=== PATIENT | male | born 1960 | race Caucasian/White ===

== ENCOUNTER 2022-10-19 10:14 | Outpatient (CLI) | payer BC, MEDICAID, SELFPAY ==
--- NOTE | 2022-10-19 10:24 | XRR_ITS ---
PROCEDURE INFORMATION: Exam: XR Chest Exam date and time: 10/19/2022 10:26 AM Age: 62 years old Clinical indication: Cough TECHNIQUE: Imaging protocol: Radiologic exam of the chest. Views: 2 views. COMPARISON: CR XR chest 1V [id number] 10/12/2018 9:37 PM FINDINGS: Lungs: Perihilar interstitial opacities, right greater than left. Pleural spaces: Unremarkable. No pleural effusion. No pneumothorax. Heart/Mediastinum: Unremarkable. No cardiomegaly. Bones/joints: Unremarkable. XR/XR chest 2V* [id number] IMPRESSION: Perihilar interstitial opacities, right greater than left, may reflect infection.
== END 2022-10-19 10:15 | disposition home or self-care (01) ==
LOC: RAD 10:21
PROVIDERS: PCP Family Medicine; Visit Provider Family Medicine
DX: R05.9 Cough, unspecified (principal)
CPT/HCPCS: 71046

== ENCOUNTER 2023-07-20 08:44 | Outpatient (CLI) | payer BC, MEDICAID, SELFPAY ==
[2023-07-20 09:06] VITALS: PULSE 64; RESP 18; O2SAT 95
[2023-07-20] MEDS: albuterol 2.5 mg/3 mL Neb INHALATION (09:06)
== END 2023-07-20 08:45 | disposition home or self-care (01) ==
LOC: RT 08:44
PROVIDERS: PCP Family Medicine; Visit Provider Family Medicine
DX: R05.9 Cough, unspecified (principal); R06.00 Dyspnea, unspecified; R94.2 Abnormal results of pulmonary function studies
CPT/HCPCS: 94060; 94726; 94729; J7613

== ENCOUNTER 2023-08-10 07:38 | Outpatient (CLI) | payer BC, SELFPAY ==
--- NOTE | 2023-08-10 07:46 | CTR_ITS ---
PROCEDURE INFORMATION: Exam: CT Chest Without Contrast; Diagnostic Exam date and time: 08/10/2023 7:53 AM Age: 63 years old Clinical indication: Patient HX: Persistent chronic cough for the last two years. 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 TECHNIQUE: Imaging protocol: Diagnostic computed tomography of the chest without contrast. Radiation optimization: All CT scans at this facility use at least one of these dose optimization techniques: automated exposure control; mA and/or kV adjustment per patient size (includes targeted exams where dose is matched to clinical indication); or iterative reconstruction. REPORTING DATA: Count of CT and Cardiac NM exams in prior 12 months: This patient has received 0 known CTs and 0 known cardiac nuclear medicine studies in the 12 months prior to the current study. COMPARISON: 1. CR XR chest 2V* [id number] 10/19/2022 10:26 AM 2. CR XR chest 1V [id number] 10/12/2018 9:37 PM RADIATION DOSE METRICS: Total DLP (mGy-cm): 306.49 FINDINGS: Lungs: Moderate severity bilateral symmetric lung disease characterized by central lung predominant peribronchovascular consolidation and coarse reticular opacity with mild pulmonary parenchymal architectural distortion and numerous irregular pulmonary nodules, some of which are calcified. The nodules measure 3-9 mm. There is platelike atelectasis in the right mid lung. Segmental bronchi are mildly narrowed in the leslie bilaterally. Pleural spaces: Trace left pleural effusion. No pneumothorax. Heart: Heart size is normal. There is no pericardial effusion. There are calcifications at the aortic valve. Coronary arteries: Coronary artery calcification is absent. Lymph nodes: There is lymphadenopathy in the gastrohepatic ligament. Lymph nodes measure up to 17 x 14 mm on axial series 4, image 58. There is an enlarged retrocrural lymph node measuring 22 x 13 mm on axial series 4, image 51. There are diffusely enlarged mediastinal and bilateral hilar lymph nodes. Many of the lymph nodes demonstrate internal calcification. Vasculature: The aorta is unremarkable. There is no aneurysm. Gallbladder and bile ducts: There is a solitary calcified gallstone in the nondistended gallbladder lumen. There is no sign of acute cholecystitis. Bones/joints: Bones are unremarkable. Soft tissues: The extrathoracic soft tissues are unremarkable. CT/CT chest con [id number] IMPRESSION: 1. Moderate severity bilateral lung disease is similar to findings on 10/19/2022 and is new since 10/12/2018. The findings are typical of sarcoidosis. Differential diagnosis includes pneumoconioses (chronic beryllium disease and silicosis), and tuberculosis. Recommend correlation with serological biomarkers. 2. Calcified and noncalcified bilateral pulmonary nodules measuring up to 9 mm are likely related to underlying lung disease. Neoplastic nodules cannot be excluded. For patients at low risk (minimal or absent history of smoking and of other known risk factors), recommend CT Chest at 3-6 months, then consider CT Chest at 18-24 months. For patients at high risk (history of smoking or of other known risk factors), recommend CT Chest at 3-6 months, then CT Chest at 18-24 months. (Reference: Ezekiel) 3. Calcified mediastinal and hilar lymphadenopathy consistent with sarcoidosis or pneumoconiosis. Enlarged noncalcified lymph nodes in the retrocrural region and upper abdomen are also likely related to underlying lung disease. Neoplastic lymphadenopathy in the upper abdomen cannot be excluded. REFERENCES: Ezekiel H, et al. Guidelines for Management of Incidental Pulmonary Nodules Detected on CT Images: From the Fleischner Society 2017. Radiology. 2017;284(1):228-243.
== END 2023-08-10 07:39 | disposition home or self-care (01) ==
LOC: RAD 07:39
PROVIDERS: PCP Family Medicine; Visit Provider Family Medicine
DX: R05.3 Chronic cough (principal); J98.4 Other disorders of lung; R59.0 Localized enlarged lymph nodes; R91.8 Other nonspecific abnormal finding of lung field; Z57.8 Occupational exposure to other risk factors
CPT/HCPCS: 71250

== ENCOUNTER 2024-02-01 07:40 | Day surgery (SDC) | payer BC, MEDICAID, SELFPAY ==
[2024-02-01 08:03] VITALS: BP 131/77; PULSE 66; RESP 16; TEMP 36.3; O2SAT 97
[2024-02-01] MEDS: sodium chloride 0.9% 1,000 ML 30 ML IV (08:09)
--- NOTE | 2024-02-01 08:43 | ANES.PREANE2 ---
Pre-Anesthetic Assessment Height/Weight: Height 1.83 m Temp Pulse Resp BP Pulse Ox O2 Del Method 97.3 F L 66 16 131/77 97 Room Air 02/01/24 08:03 02/01/24 08:03 02/01/24 08:03 02/01/24 08:03 02/01/24 08:03 02/01/24 08:03 Preop Diagnosis: screening Operation Date: 02/01/24 08:45 Proposed Procedures p Colonoscopy 52454, G0105, Z12.11(Not Applicable) - Ap Henry, DO Was Beta Zana taken within 24 hours: N/A Was Clonidine taken within 24 hours: N/A Last intake: Intake Last Liquid Date 02/01/24 Last Liquid Time 23:30 Last Solid Date 01/31/24 Last Solid Time 21:00 Social No alcohol and No tobacco Exam alert, oriented x 3, clear to auscultation bilaterally and regular rate & rhythm Airway Submandibular: within normal limits Cervical ROM: within normal limits Mallampati: Class II Dentition: chipped Comments: Comments: very poor dention. prominent front middle upper teeth. broken teeth noted, some in the past week, patient states he needs to go see the dentist History/ROS No significant history except as noted Pulmonary Chronic Obstructive Pulmonary Disease sarcoidosis, copd, no oxygen use. sleeps upright 45 degrees CV/HEM METS > 4 None reported Hepatic None reported GI Gastroesophageal Reflux Disease controlled Metabolic None reported Musc/skel None reported Neuropsych None reported Anesthetic Plan ASA status: 2 Anesthesia: MAC Risk of > 500 ml blood loss (7ml/kg in children): Yes, adequate IV access and fluids planned Medications/Allergies Home Medications Medication Instructions Recorded Confirmed Last Taken Type triamcinolone acetonide 55 mcg 2 spray intranasal DAILY #16.9 mL 10/10/22 02/01/24 01/30/24 Rx nasal spray aerosol (Nasacort Allergy) levocetirizine 5 mg tablet (Xyzal) 5 mg PO DAILY #30 tabs 05/27/23 02/01/24 01/30/24 Rx prednisone 10 mg tablet 20 mg PO DAILY 12/22/23 02/01/24 01/30/24 History ascorbic acid (vitamin C) 1,000 mg 500 mg PO DAILY 01/30/24 02/01/24 01/30/24 History tablet (Vitamin C) fluticasone 500 mcg-salmeterol 50 1 inh inhalation BID 01/30/24 02/01/24 01/30/24 History mcg/dose blistr powdr for inhalation (Advair Diskus) ipratropium bromide 42 mcg (0.06 2 spray intranasal QID PRN 01/30/24 02/01/24 01/30/24 History %) nasal spray Congestion omeprazole 40 mg capsule,delayed 40 mg PO DAILY 01/30/24 02/01/24 01/30/24 History release sulfamethoxazole 800 See Rx Instructions .Route .COMPLEX 01/30/24 02/01/24 01/30/24 History mg-trimethoprim 160 mg tablet (Bactrim DS) Allergies Allergy/AdvReac Type Severity Reaction Status Date / Time No Known Allergies Allergy Unverified 02/01/24 07:59 Current Medications Generic Name Dose Route Start Last Admin Trade Name Freq PRN Reason Stop Dose Admin Sodium Chloride 1,000 mls @ 30 mls/hr 02/01/24 08:00 02/01/24 08:09 Sodium Chloride 0.9% IV 02/02/24 07:59 30 mls/hr .Q24H AIDE Administration PFSH Anesthesia Surgical History History of hip surgery Social History Smoking and tobacco/nicotine status: never used tobacco/nicotine Data Anesthesia Cardiac Studies: No Data to Display
--- NOTE | 2024-02-01 09:07 | PM.HP ---
Providers/Chief Complaint Primary Care Provider: Marylou Tapia MD Chief Complaint: Z12.11 History of Present Illness Colin Conner is a 63 year old male Review of Systems General: Reports: 10 or more systems reviewed and unremarkable except in HPI and below Medications/Allergies Home Medications Medication Instructions Recorded Confirmed Last Taken Type triamcinolone acetonide 55 mcg 2 spray intranasal DAILY #16.9 mL 10/10/22 02/01/24 01/30/24 Rx nasal spray aerosol (Nasacort Allergy) levocetirizine 5 mg tablet (Xyzal) 5 mg PO DAILY #30 tabs 05/27/23 02/01/24 01/30/24 Rx prednisone 10 mg tablet 20 mg PO DAILY 12/22/23 02/01/24 01/30/24 History ascorbic acid (vitamin C) 1,000 mg 500 mg PO DAILY 01/30/24 02/01/24 01/30/24 History tablet (Vitamin C) fluticasone 500 mcg-salmeterol 50 1 inh inhalation BID 01/30/24 02/01/24 01/30/24 History mcg/dose blistr powdr for inhalation (Advair Diskus) ipratropium bromide 42 mcg (0.06 2 spray intranasal QID PRN 01/30/24 02/01/24 01/30/24 History %) nasal spray Congestion omeprazole 40 mg capsule,delayed 40 mg PO DAILY 01/30/24 02/01/24 01/30/24 History release sulfamethoxazole 800 See Rx Instructions .Route .COMPLEX 01/30/24 02/01/24 01/30/24 History mg-trimethoprim 160 mg tablet (Bactrim DS) Allergies Allergy/AdvReac Type Severity Reaction Status Date / Time No Known Allergies Allergy Unverified 02/01/24 07:59 PFSH Acute PFSH: Surgical History History of hip surgery Social History Smoking and tobacco/nicotine status: never used tobacco/nicotine Vitals/I&O/Wt Last Vital Signs Temp 97.3 F L 02/01/24 08:03 Pulse 66 02/01/24 08:03 Resp 16 02/01/24 08:03 BP 131/77 02/01/24 08:03 Pulse Ox 97 02/01/24 08:03 O2 Del Method Room Air 02/01/24 08:03 A&P Assessment and plan (1) Colon cancer screening: Plan Colonoscopy Attestations Medical Necessity Statement*: Home Coding Level of Care Code Acute Code for Chg Fwd Diagnoses Colon cancer screening Z12.11
[2024-02-01 09:20] VITALS: BP 113/70; PULSE 69; RESP 18; TEMP 36.4; O2SAT 99
[2024-02-01 09:35] VITALS: BP 111/70; PULSE 74; RESP 18; O2SAT 95
--- NOTE | 2024-02-01 10:41 | ANE.PACU2 ---
Inpatient post-anesthesia follow up: Airway intact: Yes Vital signs: Temperature 97.5 F Pulse Rate 74 Respiratory Rate 18 Blood Pressure 111/70 Pulse Oximetry 95 Oxygen Delivery Me thod Room Air Oxygen Flow Rate Fraction of Inspir ed Oxygen Hydration adequate: Yes Nausea and vomiting: No Pain level: 1 Mental status: Baseline
== END 2024-02-01 09:54 | disposition home or self-care (01) ==
PROVIDERS: PCP Family Medicine; Visit Provider Surgery
PROC: 0DJD8ZZ Inspection of Lower Intestinal Tract, Via Natural or Artificial Opening Endoscopic (ICD-10-PCS; CPT 45378; principal; 2024-02-01 08:45)
DX: Z12.11 Encounter for screening for malignant neoplasm of colon (principal); J44.9 Chronic obstructive pulmonary disease, unspecified; K21.9 Gastro-esophageal reflux disease without esophagitis
CPT/HCPCS: 45378; J2704; J7030

== ENCOUNTER 2024-05-23 07:52 | Outpatient (CLI) | payer BC, MEDICAID, SELFPAY ==
[2024-05-23 08:13] VITALS: PULSE 77; RESP 18; O2SAT 95
[2024-05-23] MEDS: albuterol 2.5 mg/3 mL Neb INHALATION (08:13)
[2024-05-23 08:18] VITALS: PULSE 86
== END 2024-05-23 07:53 | disposition home or self-care (01) ==
LOC: RT 07:53
PROVIDERS: PCP Family Medicine; Visit Provider Internal Medicine
DX: J44.9 Chronic obstructive pulmonary disease, unspecified (principal); D86.9 Sarcoidosis, unspecified; R91.8 Other nonspecific abnormal finding of lung field; R94.2 Abnormal results of pulmonary function studies
CPT/HCPCS: 94060; 94726; 94729; J7613

== ENCOUNTER 2024-07-31 07:03 | Outpatient (CLI) | payer OTHER, SELFPAY ==
[2024-07-31 07:30] VITALS: PULSE 83; RESP 18; O2SAT 97
[2024-07-31] MEDS: albuterol 2.5 mg/3 mL Neb INHALATION (07:30)
[2024-07-31 07:34] VITALS: PULSE 87
== END 2024-07-31 07:04 | disposition home or self-care (01) ==
LOC: RT 07:03
PROVIDERS: PCP Family Medicine; Visit Provider Orthopaedic Surgery
DX: Z02.71 Encounter for disability determination (principal); J44.9 Chronic obstructive pulmonary disease, unspecified
CPT/HCPCS: 94060; 94729; J7613

== ENCOUNTER 2024-09-07 01:05 | Emergency (ER) | payer BC, MEDICAID, SELFPAY ==
--- NOTE | 2024-09-07 01:30 | XRR_ITS ---
PROCEDURE INFORMATION: Exam: XR Complete Acute Abdomen Series Including Chest Exam date and time: 09/07/2024 1:40 AM Age: 64 years old Clinical indication: Abdominal pain; Patient HX: HX sarcoidosis TECHNIQUE: Imaging protocol: Radiologic exam. Complete acute abdomen series, including 2 or more views of the abdomen and a single view chest. COMPARISON: CT chest con [id number] 08/10/2023 7:53 AM FINDINGS: Lungs: Persistent masslike scarring/consolidation right infrahilar lung. Chronic interstitial change, similar to prior. Pleural spaces: Normal. No pleural effusions. No pneumothorax. Heart/Mediastinum: Normal. No cardiomegaly. Gastrointestinal tract: Constipation. No evidence of obstruction. No free air. Intraperitoneal space: Normal. No free air. Bones/joints: Normal. No acute fracture. Soft tissues: Normal. XR/XR acute abdomen series [id number] IMPRESSION: Chronic changes lungs, with an appearance consistent with silicosis and fibrosis. Constipation.
[2024-09-07 01:31] VITALS: BP 162/88; PULSE 68; RESP 18; TEMP 36.6; O2SAT 93; BMI 24.8
--- NOTE | 2024-09-07 01:43 | W.ED.ABDPA2 ---
HPI - Abdominal Pain General: Chief Complaint: Abdominal Pain Stated Complaint: right abd pain to flank Time Seen by Provider: 09/07/24 01:27 History of Present Illness: 64-year-old man with a history of COPD and sarcoidosis who presents to the emergency room with right flank and abdominal pain. Started in his upper flank and then radiated down into his mid right abdomen. He took some Tylenol at home and has improved some. No pleuritic chest pain. No nausea or vomiting. No fevers. No cough. Related Data Home Medications Medication Instructions Recorded Confirmed prednisone 10 mg tablet 20 mg PO DAILY 12/22/23 02/01/24 ascorbic acid (vitamin C) 1,000 mg 500 mg PO DAILY 01/30/24 02/01/24 tablet (Vitamin C) fluticasone 500 mcg-salmeterol 50 1 inh inhalation BID 01/30/24 02/01/24 mcg/dose blistr powdr for inhalation (Advair Diskus) ipratropium bromide 42 mcg (0.06 2 spray intranasal QID PRN 01/30/24 02/01/24 %) nasal spray Congestion omeprazole 40 mg capsule,delayed 40 mg PO DAILY 01/30/24 02/01/24 release sulfamethoxazole 800 See Rx Instructions .Route .COMPLEX 01/30/24 02/01/24 mg-trimethoprim 160 mg tablet (Bactrim DS) Previous Rx's Medication Instructions Recorded triamcinolone acetonide 55 mcg 2 spray intranasal DAILY #16.9 mL 10/10/22 nasal spray aerosol (Nasacort Allergy) levocetirizine 5 mg tablet (Xyzal) 5 mg PO DAILY #30 tabs 05/27/23 Allergies Allergy/AdvReac Type Severity Reaction Status Date / Time No Known Allergies Allergy Verified 09/07/24 01:34 Review of Systems Narrative: Constitutional symptoms: Negative except as documented in HPI. Skin symptoms: Negative except as documented in HPI. Eye symptoms: Negative except as documented in HPI. ENMT symptoms: Negative except as documented in HPI. Respiratory symptoms: Negative except as documented in HPI. Cardiovascular symptoms: Negative except as documented in HPI. Gastrointestinal symptoms: Negative except as documented in HPI. Genitourinary symptoms: Negative except as documented in HPI. Musculoskeletal symptoms: Negative except as documented in HPI. Neurologic symptoms: Negative except as documented in HPI. Psychiatric symptoms: Negative except as documented in HPI. Endocrine symptoms: Negative except as documented in HPI. PFS ED PFSH: Surgical History History of hip surgery Social History Smoking and tobacco/nicotine status: never used tobacco/nicotine Physical Exam Narrative: EXAM NARRATIVE: General: Alert, no acute distress. Skin: Warm, dry. Head: Normocephalic, atraumatic. Neck: Supple, trachea midline. Eye: Extraocular movements are intact. Ears, nose, mouth and throat: mucosa moist. Cardiovascular: Regular, Normal peripheral perfusion. Respiratory: Lungs are clear to auscultation, respirations are non-labored, breath sounds are equal, Symmetrical chest wall expansion. Gastrointestinal: Soft, Nontender, Non distended Musculoskeletal: Normal ROM, no deformity. Neurological: Alert and oriented, No focal neurological deficit observed. Psychiatric: Cooperative, appropriate mood & affect. Course Vital Signs: Vital signs: Vital Signs Temperature 97.8 F 09/07/24 01:31 Pulse Rate 68 09/07/24 01:31 Respiratory Rate 18 09/07/24 01:31 Blood Pressure 162/88 09/07/24 01:31 Pulse Oximetry 93 09/07/24 01:31 Oxygen Delivery Me thod Room Air 09/07/24 01:31 MDM - Abdominal Pain Medical Decision Making Lab Review: Laboratory results were reviewed and interpreted by myself the emergency room physician. Lab work is unremarkable. No significant leukocytosis. No anemia. No new renal failure. Acute abdominal series: chest x-ray: No acute process. Old right sided scarring related to his sarcoidosis. This was reviewed and interpreted by myself the emergency room physician Abdomen x-ray: Nonspecific bowel gas pattern. No evidence of free air or obstruction. This was reviewed and interpreted by myself the emergency room physician. I also reviewed the radiology report. I reviewed the patient's medical record. Reexamination: Patient remained stable. No increased work of breathing. No altered mental status. No focal motor deficits. Pain has continued to improve after he took Tylenol. No blood in his urine. I do not think this is kidney stones. Seem to be worse with movement and had stabbing pains but is now better. Assessment and plan: Flank pain - Discharged home - Discussed plan with patient. Answered any questions. - Evaluation and treatment of this problem were appropriate in the emergency setting. Lab Data 09/07/24 01:40 09/07/24 01:40 Labs/Radiology: Laboratory Results WBC 10.04 10^3/uL (3.29-11.43) 09/07/24 01:40 RBC 5.05 10^6/uL (3.85-5.65) 09/07/24 01:40 Hgb 15.20 g/dL (11.27-16.99) 09/07/24 01:40 Hct 46.6 % (37-53) 09/07/24 01:40 MCV 92.3 fl (82-101) 09/07/24 01:40 MCH 30.1 pg (27-33) 09/07/24 01:40 MCHC 32.6 g/dL (30-55) 09/07/24 01:40 RDW 13.1 % (12.1-15.1) 09/07/24 01:40 Plt Count 207 10^3/cmm (157-399) 09/07/24 01:40 MPV 9.7 fL (7.4-10.4) 09/07/24 01:40 Neut % (Auto) 73.3 % 09/07/24 01:40 Lymph % (Auto) 16.6 % 09/07/24 01:40 Pepin % (Auto) 7.3 % 09/07/24 01:40 Eos % (Auto) 0.9 % 09/07/24 01:40 Baso % (Auto) 0.4 % 09/07/24 01:40 Neut # (Auto) 7.36 10^3/uL (1.8-7.7) 09/07/24 01:40 Lymph # (Auto) 1.7 10^3/uL (0.8-4.8) 09/07/24 01:40 Pepin # (Auto) 0.7 10^3/uL (0.2-0.9) 09/07/24 01:40 Eos # (Auto) 0.1 10^3/uL (0.0-0.8) 09/07/24 01:40 Baso # (Auto) 0.0 10^3/uL (0.0-0.1) 09/07/24 01:40 Nucleated RBC % (auto) 0 % 09/07/24 01:40 Nucleated RBCs # 0.0 /100WBC 09/07/24 01:40 Sodium 136 mmol/L (136-145) 09/07/24 01:40 Potassium 3.8 mmol/L (3.5-5.1) 09/07/24 01:40 Chloride 99 mmol/L (98-107) 09/07/24 01:40 Carbon Dioxide 25 mmol/L (22-29) 09/07/24 01:40 Anion Gap 15.8 (5-19) 09/07/24 01:40 BUN 20 mg/dL (8-23) 09/07/24 01:40 Creatinine 1.0 mg/dL (0.7-1.2) 09/07/24 01:40 GFR Calculation 75.7 mL/min (90-130) L 09/07/24 01:40 Glucose 127 mg/dL (65-115) H 09/07/24 01:40 Calculated Osmolality 286 mOsm/kg (285-295) 09/07/24 01:40 Lactic Acid 1.6 mmol/L (0.5-2.2) 09/07/24 01:40 Calcium 8.8 mg/dL (8.5-10.5) 09/07/24 01:40 Total Bilirubin 0.3 mg/dL (0.15-1.2) 09/07/24 01:40 AST 17 U/L (0-40) 09/07/24 01:40 ALT 18 U/L (0-41) 09/07/24 01:40 Alkaline Phosphatase 86 U/L (40-130) 09/07/24 01:40 C-Reactive Protein 3.0 mg/L (0.0-4.9) 09/07/24 01:40 Total Protein 6.8 g/dL (6.6-8.7) 09/07/24 01:40 Albumin 4.0 g/dL (3.5-5.2) 09/07/24 01:40 Globulin 2.8 g/dL (1.3-4.6) 09/07/24 01:40 Urine Color Yellow (Yellow) 09/07/24 02:22 Urine Appearance Clear (CLEAR) 09/07/24 02:22 Urine pH 5.5 (5-7) 09/07/24 02:22 Ur Specific [place] 1.032 (1.005-1.030) H 09/07/24 02:22 Urine Protein 1+ (Negative) A 09/07/24 02:22 Urine Glucose (UA) Negative (Normal) 09/07/24 02:22 Urine Ketones Negative (Negative) 09/07/24 02:22 Urine Blood Negative (Negative) 09/07/24 02:22 Urine Nitrate Negative (Negative) 09/07/24 02:22 Urine Bilirubin Negative (Negative) 09/07/24 02:22 Urine Urobilinogen 0.2 mg/dL (Negative) 09/07/24 02:22 Ur Leukocyte Esterase Negative (Negative) 09/07/24 02:22 Urine RBC 0-2 /hpf (0-2) 09/07/24 02:22 Urine WBC 0-5 /hpf (0-5) 09/07/24 02:22 Ur Squamous Epith Cells 0-5 /hpf (0-5) 09/07/24 02:22 Amorphous Sediment Not Reportable 09/07/24 02:22 Urine Bacteria None seen /hpf (NONE) 09/07/24 02:22 Hyaline Casts 2.46 /lpf 09/07/24 02:22 All radiology interpretation(s) finalized by discharge Discharge Plan Discharge Patient Disposition: Home Clinical Impression: Flank pain, Chronic obstructive pulmonary disease, Sarcoidosis Condition: Stable Prescriptions: No Action triamcinolone acetonide [Nasacort Allergy] 55 mcg aerosol,spray 2 spray intranasal DAILY Qty: 16.9 0RF Rx Instructions: administer into each nostril levocetirizine [Xyzal] 5 mg tablet 5 mg PO DAILY Qty: 30 0RF prednisone 10 mg tablet 20 mg PO DAILY Rx Instructions: 1 tablet by mouth as directed ipratropium bromide 42 mcg (0.06 %) spray,non-aerosol 2 spray intranasal QID PRN (Reason: Congestion) Rx Instructions: administer into each nostril ascorbic acid (vitamin C) [Vitamin C] 1,000 mg Tablet 500 mg PO DAILY sulfamethoxazole-trimethoprim [Bactrim DS] 800-160 mg Tablet See Rx Instructions .ROUTE .COMPLEX Rx Instructions: 1 tab mon, wed, and fri omeprazole 40 mg capsule,delayed release(DR/EC) 40 mg PO DAILY fluticasone propion-salmeterol [Advair Diskus] 500-50 mcg/dose blister with device 1 inh INHALATION BID Discharge Orders: Discharge ED (Routine); Ordered 09/07/24 Ordered By: Radha Olea Referrals: Marylou Tapia MD [Primary Care Provider] - Discharge Diet: Usual diet Discharge Activity: Increase activity as tolerated Patient Instructions: Opioid Safety, Pain Management Activity Restrictions/Additional Instructions: Thank you for choosing [facility] for your healthcare needs today. Please realize this is an emergency room and that we are providing you with a medical screening exam and this may not be complete and all inclusive of all the testing and or work up that you may need to determine your ailment or severity of your illness. You have been screened and evaluated and felt safe for discharge. Health conditions do change or evolve sometimes and as such it is important that you follow up with your Primary Doctor to be re checked, 3-5 days is a general good time frame for follow up. You are always welcome to return to the ED for re assessment if your symptoms are worsening or you have new concerns Coding Level of Care Code ED [employer] [facility] [place]
[2024-09-07 01:48] LABS: Basophils % 0.4 %; Eosinophils # 0.1 10^3/uL (0.0-0.8); Eosinophils % 0.9 %; Hematocrit 46.6 % (37-53); Lymphocytes # 1.7 10^3/uL (0.8-4.8); Lymphocytes % 16.6 %; Mean Corpuscular HGB Conc 32.6 g/dL (30-55); Mean Corpuscular Hemoglobin 30.1 pg (27-33); Mean Corpuscular Volume 92.3 fl (82-101); Mean Platelet Volume 9.7 fL (7.4-10.4); Monocytes # 0.7 10^3/uL (0.2-0.9); Monocytes % 7.3 %; Neutrophils # 7.36 10^3/uL (1.8-7.7); Neutrophils % 73.3 %; Nucleated Red Blood Cells % 0 %; Platelet Count 207 10^3/cmm (157-399); Red Blood Count 5.05 10^6/uL (3.85-5.65); Red Cell Distribution Width 13.1 % (12.1-15.1); White Blood Count 10.04 10^3/uL (3.29-11.43)
[2024-09-07 02:04] VITALS: BP 119/78; PULSE 74; O2SAT 93
[2024-09-07 02:04] LABS: Alanine Aminotransferase 18 U/L (0-41); Alkaline Phosphatase 86 U/L (40-130); Anion Gap 15.8 (5-19); Aspartate Amino Transferase 17 U/L (0-40); Blood Urea Nitrogen 20 mg/dL (8-23); Calcium 8.8 mg/dL (8.5-10.5); Carbon Dioxide 25 mmol/L (22-29); Chloride 99 mmol/L (98-107); Creatinine Clr Calc Pharmacy 86.4097; Globulin 2.8 g/dL (1.3-4.6); Glomerular Filtration Rate 75.7 mL/min (90-130); Glucose 127 mg/dL (65-115); Osmolality Calculated 286 mOsm/kg (285-295); Potassium 3.8 mmol/L (3.5-5.1); Sodium 136 mmol/L (136-145); Total Bilirubin 0.3 mg/dL (0.15-1.2); Total Protein 6.8 g/dL (6.6-8.7)
[2024-09-07 02:05] LABS: Lactic Sepsis W/Reflex 1.6 mmol/L (0.5-2.2)
[2024-09-07 02:29] LABS: Bilirubin Urine Negative (Negative); Blood Urine Negative (Negative); Glucose Urine UA Negative (Normal); Ketones Urine Negative (Negative); Leukocyte Esterase Urine Negative (Negative); Nitrate Urine Negative (Negative); Protein Urine 1+ (Negative); Urine Appearance Clear (CLEAR); Urine Color Yellow (Yellow); Urobilinogen Urine 0.2 mg/dL (Negative); pH Urine 5.5 (5-7)
[2024-09-07 02:34] VITALS: BP 134/71; PULSE 71; O2SAT 93
[2024-09-07 02:35] LABS: Bacteria Urine None Seen /hpf; Hyaline Casts Urine 2.46 /lpf; RBC Urine 0-2 /hpf (0-2); Squamous Epithelial Cell Urine 0-5 /hpf (0-5); WBC Urine 0-5 /hpf (0-5)
[2024-09-07 02:40] LABS: Specific Gravity, Urine 1.032 (1.005-1.030)
[2024-09-07 03:17] VITALS: BP 153/85; PULSE 67; RESP 17; O2SAT 97
== END 2024-09-07 03:16 | disposition home or self-care (01) ==
PROVIDERS: Emergency Provider Emergency Medicine; PCP Family Medicine
DX: R10.9 Unspecified abdominal pain (principal); J44.9 Chronic obstructive pulmonary disease, unspecified; D86.9 Sarcoidosis, unspecified
CPT/HCPCS: 36415; 74022; 80053; 81001; 83605; 85025; 86140; 99284

== ENCOUNTER 2024-10-01 12:19 | Outpatient (CLI) | payer BC, MEDICAID, SELFPAY ==
[2024-10-01 12:44] LABS: Basophils % 0.6 %; Eosinophils # 0.1 10^3/uL (0.0-0.8); Eosinophils % 1.5 %; Hematocrit 45.8 % (37-53); Lymphocytes # 1.2 10^3/uL (0.8-4.8); Lymphocytes % 15.9 %; Mean Corpuscular HGB Conc 33.4 g/dL (30-55); Mean Corpuscular Hemoglobin 30.4 pg (27-33); Mean Corpuscular Volume 90.9 fl (82-101); Mean Platelet Volume 9.6 fL (7.4-10.4); Monocytes # 0.6 10^3/uL (0.2-0.9); Monocytes % 8.7 %; Neutrophils # 5.23 10^3/uL (1.8-7.7); Neutrophils % 72.5 %; Nucleated Red Blood Cells % 0 %; Platelet Count 185 10^3/cmm (157-399); Red Blood Count 5.04 10^6/uL (3.85-5.65); Red Cell Distribution Width 13.2 % (12.1-15.1); White Blood Count 7.22 10^3/uL (3.29-11.43)
[2024-10-01 13:07] LABS: Alanine Aminotransferase 16 U/L (0-41); Albumin Level 4.1 g/dL (3.5-5.2); Alkaline Phosphatase 82 U/L (40-130); Anion Gap 18.9 (5-19); Aspartate Amino Transferase 19 U/L (0-40); Blood Urea Nitrogen 20 mg/dL (8-23); Calcium 9.4 mg/dL (8.5-10.5); Carbon Dioxide 22 mmol/L (22-29); Chloride 103 mmol/L (98-107); Globulin 3.1 g/dL (1.3-4.6); Glomerular Filtration Rate 61.3 mL/min (90-130); Glucose 130 mg/dL (65-115); Osmolality Calculated 294 mOsm/kg (285-295); Potassium 3.9 mmol/L (3.5-5.1); Sodium 140 mmol/L (136-145); Total Bilirubin 0.7 mg/dL (0.15-1.2); Total Protein 7.2 g/dL (6.6-8.7)
== END 2024-10-01 12:20 | disposition home or self-care (01) ==
LOC: LAB 12:28
PROVIDERS: PCP Family Medicine; Visit Provider Internal Medicine
DX: D86.9 Sarcoidosis, unspecified (principal)
CPT/HCPCS: 36415; 80053; 85025

== ENCOUNTER 2024-10-23 11:26 | Outpatient (CLI) | payer BC, MEDICAID, SELFPAY ==
[2024-10-23 12:11] LABS: Basophils % 0.5 %; Eosinophils # 0.1 10^3/uL (0.0-0.8); Hematocrit 43.6 % (37-53); Lymphocytes # 1.1 10^3/uL (0.8-4.8); Lymphocytes % 17.2 %; Mean Corpuscular HGB Conc 32.8 g/dL (30-55); Mean Corpuscular Hemoglobin 30.4 pg (27-33); Mean Corpuscular Volume 92.8 fl (82-101); Mean Platelet Volume 9.9 fL (7.4-10.4); Monocytes # 0.6 10^3/uL (0.2-0.9); Monocytes % 9.7 %; Neutrophils # 4.46 10^3/uL (1.8-7.7); Neutrophils % 69.8 %; Nucleated Red Blood Cells % 0 %; Platelet Count 212 10^3/cmm (157-399); Red Cell Distribution Width 13.8 % (12.1-15.1); White Blood Count 6.39 10^3/uL (3.29-11.43)
[2024-10-23 12:34] LABS: Alanine Aminotransferase 18 U/L (0-41); Albumin Level 3.9 g/dL (3.5-5.2); Alkaline Phosphatase 76 U/L (40-130); Anion Gap 13.9 (5-19); Aspartate Amino Transferase 18 U/L (0-40); Blood Urea Nitrogen 13 mg/dL (8-23); Carbon Dioxide 26 mmol/L (22-29); Chloride 107 mmol/L (98-107); Globulin 2.9 g/dL (1.3-4.6); Glomerular Filtration Rate 75.7 mL/min (90-130); Glucose 102 mg/dL (65-115); Osmolality Calculated 296 mOsm/kg (285-295); Potassium 3.9 mmol/L (3.5-5.1); Sodium 143 mmol/L (136-145); Total Bilirubin 0.6 mg/dL (0.15-1.2); Total Protein 6.8 g/dL (6.6-8.7)
== END 2024-10-23 11:27 | disposition home or self-care (01) ==
PROVIDERS: PCP Family Medicine; Visit Provider Internal Medicine
DX: D86.9 Sarcoidosis, unspecified (principal)
CPT/HCPCS: 36415; 80053; 85025

== ENCOUNTER 2024-11-20 10:31 | Emergency (ER) | payer BC, MEDICAID, SELFPAY ==
[2024-11-20 10:47] VITALS: BP 117/74; PULSE 84; TEMP 36.9; O2SAT 95; BMI 23.0
--- NOTE | 2024-11-20 10:55 | ED_ITS ---
HPI - SOB/Dyspnea 2 General: Chief Complaint: Recheck/Abnormal Lab/Rx Stated Complaint: low O2 Time Seen by Provider: 11/20/24 10:53 Source: patient and family () Mode of arrival: ambulatory Limitations: no limitations History of Present Illness: HPI Narrative: Patient is a 64-year-old male with a history of COPD and sarcoidosis/granulomatous disease here along with his for concerns of low oxygen readings at home yesterday. Patient states he was helping a family member move furniture and seem to be winded more so than his baseline which then caused his to check a finger pulse ox and it read 88%. They reportedly contacted their adoption services manager in [place] today who recommended they come to the emergency department to see if he needs home oxygen. does state he has been coughing, patient complains of some postnasal drainage, they question may be a mild subjective fever. Upon arrival, he is not complaining of any shortness of breath at rest. He is satting anywhere from 92 to 95% on room air. MD elicited complaint: shortness of breath Pertinent past history: COPD Onset (ago): day(s) (yesterday) Context: recent illness Severity: mild Exacerbating factors: exertion Relieving factors: rest Known history of: COPD and other (sarcoidosis) Associated symptoms: Reports chest congestion and fever(s) (maybe? subjective); Deny abdominal pain, chest pain, dizziness, extremity pain, lightheadedness, nausea, palpitations, syncope or vomiting Treatment prior to arrival: none Related Data Home Medications ?Medication ?Instructions ?Recorded ?Confirmed ascorbic acid (vitamin C) 1,000 mg 500 mg PO DAILY 11/20/24 tablet (Vitamin C) fluticasone 500 mcg-salmeterol 50 1 inh inhalation BID 01/30/24 11/20/24 mcg/dose blistr powdr for inhalation (Advair Diskus) omeprazole 40 mg capsule,delayed 40 mg PO DAILY 11/20/24 release folic acid 1 mg tablet 1 mg PO DAILY 11/20/2411/20 methotrexate sodium 2.5 mg tablet 7.5 mg PO Q7D 11/20/24 tiotropium bromide 2.5 2 inh inhalation DAILY 11/2011/20/24 mcg/actuation mist for inhalation (Spiriva Respimat) Previous Rx's ?Medication ?Instructions ?Recorded levocetirizine 5 mg tablet (Xyzal) 5 mg PO DAILY #30 t abs 05/27/23 Allergies Allergy/AdvReac Type Severity Reaction Status Date / Time No Known Allergies Allergy Verified 11/20/24 10:52 Review of Systems 2 Const: Reports: fever(s) (maybe? subjective); Denies: chills, body aches, fatigue or malaise Eyes: Denies: change in vision or blurry vision ENMT: Reports: nasal discharge Card: Denies: chest pain, palpitations, irregular heart rhythm, lightheadedness, syncope or dyspnea on exertion Resp: Reports: dyspnea (with exertion), non-productive cough and chest congestion; Denies: productive cough, wheezing or pain on inspiration GI: Denies: abdominal pain, nausea, vomiting, heartburn or diarrhea : Denies: difficulty urinating or dysuria Musc: Denies: neck pain, back pain, extremity pain, extremity swelling or joint pain Skin/Breast: Denies: rash Neuro: Denies: headache(s) or dizziness PFSH ED 2 PFSH: Surgical History History of hip surgery Social History Smoking and tobacco/nicotine status: never used tobacco/nicotine Physical Exam 2 Const: COMMON NORMALS: no acute distress, average body habitus, patient oriented x3, no limitations, healthy appearing, alert and well nourished G ENERAL APPEARANCE: cooperative HENMT: COMMON NORMALS: normocephalic and atraumatic HEAD & SCALP: n ormocephalic and atraumatic Neck/C-Spine: COMMON NORMALS: full ROM, no lymphadenopathy, supple and no meningeal signs Chest: COMMONS NORMALS: normal inspection of the chest Resp: COMMON NORMALS: normal respiratory effort and clear to auscultation bilaterally AUSCULTATION: clear to auscultation bilaterally Cardio: COMMON NORMALS: regular rate and regular rhythm RATE: regular rate RHYTHM: regular rhythm GI: COMMON NORMALS: Normal to inspection, nondistended, normoactive bowel sounds present, Soft to palpation, non-tender, No hepatosplenomegaly present and no masses PALPATION: Yes Soft to palpation and Yes No hepatosplenomegaly present : COMMON NORMALS: Yes no CVA tenderness BLADDER/KIDNEY EXAM: Yes no CVA tenderness Back/Pelvis: COMMON NORMALS: no CVA tenderness and thoracic and lumbar spine normal to inspection Extremity: COMMON NORMALS: normal to inspection, no clubbing, cyanosis or edema, no calf tenderness and no pedal edema GENERAL: Yes normal exam except as noted Neuro: COMMON NORMALS: patient oriented x3 SENSORIUM/ORIENTATION: Yes alert MENINGEAL SIGNS: Yes no meningeal signs Skin: COMMON NORMALS: no rashes or lesions noted GENERAL SKIN EXAM: no rashes or lesions noted Course 2 Vital Signs: Vital signs: Vital Signs Temperature 98.5 F 11/20/24 10:47 Pulse Rate 80 11/20/24 12:00 Respiratory Rate 18 11/20/24 11:03 Blood Pressure 130/75 11/20/24 11:03 Pulse Oximetry 93 11/20/24 12:36 Oxygen Delivery Me thod Room Air 11/20/24 12:00 MDM - SOB/Dyspnea Medical Decision Making Patient has been satting normally on room air here. I did have respiratory come and evaluate patient and he did not qualify for home oxygen. His blood work today shows a normal white count and normal procalcitonin. Remainder of blood work is unremarkable. CXR showing an increasing right perihilar infiltrate with recommendations for CT imaging. This was obtained showing an increasing soft tissue consolidation about his right hilum that has progressed since 2022. Patient during reassessment, seems aware of area and states he thinks he has had more recent imaging last year through his adoption services manager. He does state at some point he had bronchoscopy/biopsy and malignancy was ruled out. I did upload images to [facility] for his adoption services manager to review at their follow-up appointment. He was also provided a CT report and disc. They are agreeable to follow-up with his adoption services manager. Medical Records I reviewed the patient's medical records. Lab Data I reviewed the patient's lab results. 11/20/24 11:15 11/20/24 11:15 Labs/Radiology: Radiology Impressions Chest X-Ray 11/20/24 11:07 IMPRESSION: 1. Increasing RIGHT perihilar infiltrate with enlarging area of pulmonary consolidation along the RIGHT heart border. This may simply represent increasing pneumonia however an underlying enlarging mass could have the same appearance. 2. New ill-defined 2 cm soft tissue nodule in the lateral lower LEFT lung zone. A mass is not excluded. 3. Extensive superimposed chronic interstitial change and nodularity seen throughout both lungs. Chest CT 11/20/24 11:42 IMPRESSION: 1. Increasing soft tissue consolidation about the RIGHT hilum has progressed compared to 2022. Area of soft tissue consolidation measures 6.5 x 4.3 cm. Suspected this is due to progression of chronic lung disease however recommend pulmonology consultation and bronchoscopy in further evaluation to exclude neoplasm 2. Similar-appearing findings of pneumoconiosis or sarcoidosis with innumerable bilateral pulmonary nodules and calcified mediastinal and hilar lymph nodes. Overall this is slightly progressed but similar in appearance compared to previous. 3. Cholelithiasis. 4. Small esophageal hiatal hernia. Laboratory Results WBC 5.70 10^3/uL (3.29-11.43) 11/20/24 11:15 RBC 4.55 10^6/uL (3.85-5.65) 11/20/24 11:15 Hgb 13.70 g/dL (11.27-16.99) 11/20/24 11:15 Hct 41.8 % (37-53) 11/20/24 11:15 MCV 91.9 fl (82-101) 11/20/24 11:15 MCH 30.1 pg (27-33) 11/20/24 11:15 MCHC 32.8 g/dL (30-55) 11/20/24 11:15 RDW 13.7 % (12.1-15.1) 11/20/24 11:15 Plt Count 270 10^3/cmm (157-399) 11/20/24 11:15 MPV 10.2 fL (7.4-10.4) 11/20/24 11:15 Neut % (Auto) 62.2 % 11/20/24 11:15 Lymph % (Auto) 20.4 % 11/20/24 11:15 [place] % (Auto) 13.2 % 11/20/24 11:15 Eos % (Auto) 2.8 % 11/20/24 11:15 Baso % (Auto) 0.9 % 11/20/24 11:15 Neut # (Auto) 3.55 10^3/uL (1.8-7.7) 11/20/24 11:15 Lymph # (Auto) 1.2 10^3/uL (0.8-4.8) 11/20/24 11:15 [place] # (Auto) 0.8 10^3/uL (0.2-0.9) 11/20/24 11:15 Eos # (Auto) 0.2 10^3/uL (0.0-0.8) 11/20/24 11:15 Baso # (Auto) 0.1 10^3/uL (0.0-0.1) 11/20/24 11:15 Nucleated RBC % (auto) 0 % 11/20/24 11:15 Nucleated RBCs # 0.0 /100WBC 11/20/24 11:15 Sodium 139 mmol/L (136-145) 11/20/24 11:15 Potassium 3.8 mmol/L (3.5-5.1) 11/20/24 11:15 Chloride 105 mmol/L (98-107) 11/20/24 11:15 Carbon Dioxide 22 mmol/L (22-29) 11/20/24 11:15 Anion Gap 15.8 (5-19) 11/20/24 11:15 BUN 16 mg/dL (8-23) 11/20/24 11:15 Creatinine 0.9 mg/dL (0.7-1.2) 11/20/24 11:15 GFR Calculation 85.5 mL/min (90-130) L 11/20/24 11:15 Glucose 95 mg/dL (65-115) 11/20/24 11:15 Calculated Osmolality 289 mOsm/kg (285-295) 11/20/24 11:15 Calcium 9.0 mg/dL (8.5-10.5) 11/20/24 11:15 Total Bilirubin 0.6 mg/dL (0.15-1.2) 11/20/24 11:15 AST 31 U/L (0-40) 11/20/24 11:15 ALT 19 U/L (0-41) 11/20/24 11:15 Alkaline Phosphatase 100 U/L (40-130) 11/20/24 11:15 Total Protein 6.8 g/dL (6.6-8.7) 11/20/24 11:15 Albumin 3.9 g/dL (3.5-5.2) 11/20/24 11:15 Globulin 2.9 g/dL (1.3-4.6) 11/20/24 11:15 Procalcitonin 0.06 ng/mL (0-0.5) 11/20/24 11:15 All radiology interpretation(s) finalized by discharge Discharge Plan Discharge Patient Disposition: Home Clinical Impression: Sarcoidosis Condition: Stable Prescriptions: No Action levocetirizine [Xyzal] 5 mg tablet 5 mg PO DAILY Qty: 30 0RF ascorbic acid (vitamin C) [Vitamin C] 1,000 mg Tablet 500 mg PO DAILY omeprazole 40 mg capsule,delayed release(DR/EC) 40 mg PO DAILY fluticasone propion-salmeterol [Advair Diskus] 500-50 mcg/dose blister with device 1 inh INHALATION BID methotrexate sodium 2.5 mg tablet 7.5 mg PO Q7D folic acid 1 mg tablet 1 mg PO DAILY Spiriva Respimat 2.5 mcg/actuation mist 2 inh INHALATION DAILY Discharge Orders: Discharge ED (Routine); Ordered 11/20/24 Ordered By: Melanie Fay Referrals: Marylou Tapia MD [Primary Care Provider] - Activity Restrictions/Additional Instructions: As we have discussed, results of his CT scan have been uploaded to the [facility] radiology system for your adoption services manager to review. You have also been given a copy of the CT report as well as a physical copy of the CT on a disc. As we discussed, please follow-up with your adoption services manager for further evaluation and treatment of results today. Print Language: Latvian Coding Level of Care Code ED Clinical Recruiter for [facility]
[2024-11-20 11:03] VITALS: BP 130/75; PULSE 81; RESP 18; O2SAT 94
--- NOTE | 2024-11-20 11:07 | XR_ITS ---
WS: [id number] Exam: XR chest 1V portable [id number] Date/Time of Exam: 11/20/2024 11:07 AM Reason For Exam: low O2? Compared to the latest exam 09/07/2024. Increasing RIGHT perihilar infiltrate with enlarging focal area of consolidation noted along the RIGHT heart border. Also noted is a questionable new ill-defined nodule in the LEFT lower lung zone laterally measuring about 2 cm. There are extensive superimposed changes of interstitial fibrosis and nod ularity throughout both lungs otherwise stable in appearance. Heart size top limits normal. No pneumothorax or pleural effusion. The mediastinum is normal in contour. Bony structures are intact. Recommendations: Contrast CT scanning of the chest should be considered for further work-up. XR/XR chest 1V portable [id number] IMPRESSION: 1. Increasing RIGHT perihilar infiltrate with enlarging area of pulmonary conso lidation along the RIGHT heart border. This may simply represent increasing pne umonia however an underlying enlarging mass could have the same appearance. 2. New ill-defined 2 cm soft tissue nodule in the lateral lower LEFT lung zone. A mass is not excluded. 3. Extensive superimposed chronic interstitial change and nodularity seen throu ghout both lungs.
[2024-11-20 11:36] LABS: Basophils # 0.1 10^3/uL (0.0-0.1); Basophils % 0.9 %; Eosinophils # 0.2 10^3/uL (0.0-0.8); Eosinophils % 2.8 %; Hematocrit 41.8 % (37-53); Lymphocytes # 1.2 10^3/uL (0.8-4.8); Lymphocytes % 20.4 %; Mean Corpuscular HGB Conc 32.8 g/dL (30-55); Mean Corpuscular Hemoglobin 30.1 pg (27-33); Mean Corpuscular Volume 91.9 fl (82-101); Mean Platelet Volume 10.2 fL (7.4-10.4); Monocytes # 0.8 10^3/uL (0.2-0.9); Monocytes % 13.2 %; Neutrophils # 3.55 10^3/uL (1.8-7.7); Neutrophils % 62.2 %; Nucleated Red Blood Cells % 0 %; Platelet Count 270 10^3/cmm (157-399); Red Blood Count 4.55 10^6/uL (3.85-5.65); Red Cell Distribution Width 13.7 % (12.1-15.1)
--- NOTE | 2024-11-20 11:42 | CT_ITS ---
WS: [id number] CT CHEST TECHNIQUE: Contrast enhanced CT of the chest with coronal and sagittal reformatted images. CLINICAL INFORMATION: abnormal cxr COMPARISON: 08/10/2023 DLP: 348.[address] scans at [facility] use at least one of these dose optimization techniques: automated exposure control; mA and/or kV adjustment per patient size (includes targeted exams where dose is matched to clinical indication); or iterative reconstruction. FINDINGS: Again seen are innumerable tiny bilateral pulmonary nodules in the perihilar and bronchovascular distribution. Diffuse soft tissue thickening about the RIGHT hilum has increased since the prior examination with consolidation. Soft tissue thickening about the RIGHT greater than LEFT hilum and mainstem bronchi. Subsegmental atelectasis RIGHT lower lobe. Calcified mediastinal hilar and subcarinal lymph nodes similar to previous. Normal caliber thoracic aorta. Proximal pulmonary arteries are patent. No axillary lymphadenopathy. Similar-appearing paraesophageal and upper abdominal lymph nodes. Calcified gallstone in the gallbladder. Adrenal glands are normal. Small esophageal hiatal hernia. CT/CT chest w con* [id number] IMPRESSION: 1. Increasing soft tissue consolidation about the RIGHT hilum has progressed c ompared to 2022. Area of soft tissue consolidation measures 6.5 x 4.3 cm. Suspe cted this is due to progression of chronic lung disease however recommend pulmo nology consultation and bronchoscopy in further evaluation to exclude neoplasm 2. Similar-appearing findings of pneumoconiosis or sarcoidosis with innumerabl e bilateral pulmonary nodules and calcified mediastinal and hilar lymph nodes. Overall this is slightly progressed but similar in appearance compared to previ ous. 3. Cholelithiasis. 4. Small esophageal hiatal hernia.
[2024-11-20] MEDS: iohexol 350 mg/mL 500 mL Btl (per mL) IV (11:59)
[2024-11-20 12:00] VITALS: PULSE 80; O2SAT 92
[2024-11-20 12:00] LABS: Alanine Aminotransferase 19 U/L (0-41); Albumin Level 3.9 g/dL (3.5-5.2); Alkaline Phosphatase 100 U/L (40-130); Anion Gap 15.8 (5-19); Aspartate Amino Transferase 31 U/L (0-40); Blood Urea Nitrogen 16 mg/dL (8-23); Carbon Dioxide 22 mmol/L (22-29); Chloride 105 mmol/L (98-107); Globulin 2.9 g/dL (1.3-4.6); Glomerular Filtration Rate 85.5 mL/min (90-130); Glucose 95 mg/dL (65-115); Osmolality Calculated 289 mOsm/kg (285-295); Potassium 3.8 mmol/L (3.5-5.1); Sodium 139 mmol/L (136-145); Total Bilirubin 0.6 mg/dL (0.15-1.2); Total Protein 6.8 g/dL (6.6-8.7)
[2024-11-20 12:03] LABS: Procalcitonin 0.06 ng/mL (0-0.5)
[2024-11-20 12:36] VITALS: O2SAT 93
[2024-11-20 13:15] VITALS: BP 128/71; PULSE 76; O2SAT 98
== END 2024-11-20 13:15 | disposition home or self-care (01) ==
PROVIDERS: Emergency Provider Physician Assistant; PCP Family Medicine
DX: D86.9 Sarcoidosis, unspecified (principal); J44.9 Chronic obstructive pulmonary disease, unspecified
CPT/HCPCS: 71045; 71260; 80053; 84145; 85025; 94760; 99285

== ENCOUNTER 2024-11-23 11:54 | Outpatient (CLI) | payer BC, MEDICAID, SELFPAY ==
[2024-11-23 12:28] LABS: Basophils % 0.7 %; Eosinophils # 0.2 10^3/uL (0.0-0.8); Eosinophils % 3.2 %; Hematocrit 43.3 % (37-53); Lymphocytes # 1.7 10^3/uL (0.8-4.8); Lymphocytes % 29.5 %; Mean Corpuscular HGB Conc 33.9 g/dL (30-55); Mean Corpuscular Volume 91.4 fl (82-101); Monocytes # 0.8 10^3/uL (0.2-0.9); Monocytes % 13.5 %; Neutrophils # 2.97 10^3/uL (1.8-7.7); Neutrophils % 52.9 %; Nucleated Red Blood Cells % 0 %; Platelet Count 264 10^3/cmm (157-399); Red Blood Count 4.74 10^6/uL (3.85-5.65); Red Cell Distribution Width 13.5 % (12.1-15.1); White Blood Count 5.62 10^3/uL (3.29-11.43)
[2024-11-23 13:03] LABS: Alanine Aminotransferase 21 U/L (0-41); Albumin Level 4.2 g/dL (3.5-5.2); Alkaline Phosphatase 96 U/L (40-130); Anion Gap 14.8 (5-19); Aspartate Amino Transferase 30 U/L (0-40); Blood Urea Nitrogen 13 mg/dL (8-23); Carbon Dioxide 24 mmol/L (22-29); Chloride 104 mmol/L (98-107); Globulin 2.8 g/dL (1.3-4.6); Glomerular Filtration Rate 85.5 mL/min (90-130); Glucose 109 mg/dL (65-115); Osmolality Calculated 289 mOsm/kg (285-295); Potassium 3.8 mmol/L (3.5-5.1); Sodium 139 mmol/L (136-145); Total Bilirubin 0.6 mg/dL (0.15-1.2)
== END 2024-11-23 11:55 | disposition home or self-care (01) ==
LOC: LAB 11:57
PROVIDERS: PCP Family Medicine; Visit Provider Internal Medicine
DX: D86.9 Sarcoidosis, unspecified (principal)
CPT/HCPCS: 36415; 80053; 85025